=== PATIENT | male | born 1980 | race Caucasian/White ===

== ENCOUNTER 2024-05-11 13:10 | Emergency (ER) | payer SELFPAY ==
--- NOTE | ~2024-05-11 | CT_ITS ---
EXAMINATION: CT lumbar spine wo con DATE: 05/11/2024 14:03 INDICATION: Low back pain. TECHNIQUE: Computed tomography (CT) of the lumbar spine was performed without intravenous contrast. A utomated exposure control and iterative reconstruction technique were employed. The dose-length produ ct was 281.07 mGy-cm. COMPARISON: Chest single view 707/19 FINDINGS: There is a 2 mm stone in right kidney. S1 is a transitional segment. There is 3 mm anteroli sthesis of S1 on S2. There are Schmorl's nodes at most levels. There are chronic bilateral S1 pars de fects. There is mildly decreased disc height at L3-L4 and L4-L5. Osseous central spinal canal is deve lopmentally small. The following disc levels are specifically discussed: L1-L2: The disc does not extend beyond the endplate margin. There is mild bilateral facet joint osteo arthritis. There is no neural foraminal stenosis. There is no central canal stenosis. L2-L3: The disc is bulging. There is mild bilateral facet joint osteoarthritis. There is mild bilater al neural foraminal stenosis. There is mild central canal stenosis. L3-L4: The disc is bulging. There is mild right and moderate left facet joint osteoarthritis. There i s mild bilateral neural foraminal stenosis. There is mild central canal stenosis. L4-L5: The disc is bulging. There is mild bilateral facet joint osteoarthritis. There is moderate neeru ateral neural foraminal stenosis. There is mild central canal stenosis. L5-S1: The disc is bulging. There is mild bilateral facet joint osteoarthritis. There is mild right a nd moderate left neural foraminal stenosis. There is mild central canal stenosis. IMPRESSION: 1. Chronic bilateral S1 pars defects. 2. Moderate lumbar spondylosis. Reviewed, dictated and finalized at location A. ING INSPECTOR
[2024-05-11 13:09] VITALS: BP 128/97; PULSE 84; RESP 16; TEMP 36.5; O2SAT 97
[2024-05-11 14:05] VITALS: BP 127/86; PULSE 78; RESP 16; O2SAT 99
[2024-05-11] MEDS: KETOROLAC (*BKC) 60 MG/2 ML VIAL IM (14:06)
[2024-05-11] MEDS: CYCLOBENZAPRINE HCL 5 MG TABLET PO (14:06)
[2024-05-11] MEDS: HYDROcodone/acetaminophen (*CRX) 5-325 MG TABLET 1 TAB PO (14:06)
--- NOTE | 2024-05-11 14:40 | ED.BACK ---
HPI - Back Pain/Injury General Chief Complaint: Back Pain/Injury Stated Complaint: severe back pain Time Seen by Provider: 05/11/24 13:20 Source: patient Mode of arrival: EMS Limitations: no limitations History of Present Illness HPI Narrative: Patient is a 43 y/o male who presents to the ED via EMS with report of lower back pain. 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 States since yesterday, he has had increased pain in his lower back. Denies any fall or injury. Has not taken anything for pain. Denies radiation of pain into his legs. Denies saddle anesthesia, numbness, bowel or bladder incontinence, fevers, abdominal pain, weakness. Patient is currently residing in [facility] for alcohol detox. Denies any sx's of ETOH WD at this time. Denies IVDA. Related Data Allergies Allergy/AdvReac Type Severity Reaction Status Date / Time No Known Allergies Allergy Unverified 01/01/22 15:26 Review of Systems Review of Systems: All systems reviewed & are unremarkable except as noted in HPI. All systems reviewed & are unremarkable except as noted in HPI and below Exam Narrative: GENERAL: Well appearing, well-nourished, non-toxic, in no acute distress. HEAD: Normocephalic, atraumatic. RESPIRATORY: Airway patent, respirations nonlabored. Clear to auscultation bilaterally, no rales, rhonchi, wheezing. CARDIOVASCULAR: Regular rate and rhythm without murmurs, rubs, or gallops. MUSCULOSKELETAL: Moves all extremities. No gross deformities. Diffuse tenderness throughout lumbar region, involving midline spine. no palpable deformities or bony step-offs. Sensation intact. SKIN: Warm, dry, normal color. NEURO: A&O X3. Speech clear. Cranial nerves II-XII grossly intact. Steady gait. No ataxic movements. No focal deficits. PSYCHIATRIC: Appropriate mood and affect. Normal interaction. Course Vital Signs Vital signs: Vital Signs Temperature 97.7 F 05/11/24 13:09 Pulse Rate 84 05/11/24 13:09 Respiratory Rate 16 05/11/24 13:09 Blood Pressure 128/97 H 05/11/24 13:09 Pulse Oximetry 97 05/11/24 13:09 Oxygen Delivery Room Air 05/11/24 13:09 Temperature 97.7 F 05/11/24 13:09 Pulse Rate 78 05/11/24 14:05 Respiratory Rate 16 05/11/24 14:05 Blood Pressure 127/86 05/11/24 14:05 Pulse Oximetry 99 05/11/24 14:05 Oxygen Delivery Room Air 05/11/24 13:09 MDM - Back Pain/Injury MDM Narrative Medical decision making narrative: Patient's pain is positional and localized to paraspinal muscles without signs of cord compression or cauda equina. Normal neurologic exams. No red flag symptoms. No fever noted and no significant risk factors for osteomyelitis or spinal epidural abscess. No symptoms or signs to suggest pain is referred from abdominal or source. CT lumbar spine showing moderate spondylosis changes. Consistent with history of chronic pain. No acute osseous abnormality. Patient ambulates with a steady gait and is felt to be a reasonable candidate for continued outpatient management. Feeling better with supportive therapy in the ED. Will discharge with lidocaine patches and muscle relaxers for home use. Advised to continue Tylenol/ ibuprofen, limiting heavy lifting/strenuous activity. Patient in agreement with plan. Given return precautions. Discharged in stable condition back to [place]. Medical Records Attestation: I reviewed the patient's medical records. Imaging Data Attestation: I personally reviewed and interpreted this imaging study as follows: Radiologist's impression: ITS Impressions Lumbar Spine CT 05/11/24 14:07 IMPRESSION: 1. Chronic bilateral S1 pars defects. 2. Moderate lumbar spondylosis. Discharge Plan Discharge Clinical Impression: Lumbar spondylosis Strain of lumbar region Qualifiers: Encounter type: initial encounter Qualified Code(s): S39.012A - Strain of muscle, fascia and tendon of lower back, initial encounter Patient Disposition: Home, Self-Care Condition: Stable Instructions: Antibiotic Form, Acute Low Back Pain (ED), Lumbar Radiculopathy (ED), Lower Back Exercises (ED) Additional Instructions: Continue Tylenol and Ibuprofen as needed for pain. You may use ice/heat, lidocaine patches to area of pain. Take muscle relaxers as needed and prescribed. Recommend taking these at night as they may cause sedation. Do not drive, operate heavy machinery, drink alcohol while on muscle relaxers as this may cause further sedation. Follow-up with your primary care doctor and/or neurosurgery for further evaluation. Return to the ED if you experience worsening or severe pain, recurrent injury, numbness in groin or legs, going to the bathroom without meaning to, unable to keep down food or drink, or any other symptoms of concern. Prescriptions: New methocarbamol 750 mg tablet 1,500 mg PO TID PRN (Reason: muscle spasm) Qty: 15 0RF lidocaine 5 % adhesive patch,medicated 1 patch topical DAILY PRN (Reason: pain) Qty: 15 0RF Rx Instructions: leave on most painful area for up to 12 hrs Follow-up/Referrals: eDven Sterling MD [Physician] - (NEUROSURGERY) Andrew Amin MD [Physician] - (PRIMARY CARE) UNKNOWN,DOCTOR [Primary Care Provider] - Time of Disposition: 15:02
--- NOTE | 2024-05-11 16:07 | PC.NURSE ---
Report called to NENA Jose at [facility]. All questions answered. [facility] to send transport for pt.
[2024-05-11 16:10] VITALS: BP 128/83; PULSE 95; RESP 16; O2SAT 98
--- NOTE | 2024-05-11 16:10 | PC.NURSE ---
Sherri LUI to send medications to [facility] since pt. is at [place].
== END 2024-05-11 16:10 | disposition home or self-care (01) ==
PROVIDERS: Emergency Provider Physician Assistant
DX: M47.816 Spondylosis without myelopathy or radiculopathy, lumbar region (principal); S39.012A Strain of muscle, fascia and tendon of lower back, initial encounter; G89.29 Other chronic pain; X58.XXXA Exposure to other specified factors, initial encounter
CPT/HCPCS: 72131; 96372; 99284; A9270; J1885

== ENCOUNTER 2024-05-14 14:10 | Emergency (ER) | payer SELFPAY ==
--- NOTE | ~2024-05-14 | XR_ITS ---
XR chest 1V DATE: 05/14/2024 15:37 INDICATION: Syncope. Fell out of wheelchair. TECHNIQUE: Supine AP chest COMPARISON: None FINDINGS: Posterior lateral right sixth rib fracture. No pulmonary infiltrate or consolidation, pleural effusion or pulmonary vascular congestion or pneumo thorax. Heart size but appears borderline but is not optimally evaluated on AP projection because of magnific ation No hilar or mediastinal enlargement. IMPRESSION: No active disease Reviewed, dictated and finalized at location A. ULTANT IN ERGONOMICS AND SAFETY IMPRESSION: No active disease
--- NOTE | ~2024-05-14 | CT_ITS ---
EXAMINATION: CT brain wo con DATE: 05/14/2024 15:35 INDICATION: Fall TECHNIQUE: Computed tomography (CT) of the head was performed without intravenous contrast. The mA wa s adjusted according to patient size. Iterative reconstruction technique was employed. Exam dose: 60 5.33 mGy-cm total exam DLP. COMPARISON: 09/14/2014 CT brain FINDINGS: No intracranial mass lesion or hemorrhage or cerebrovascular accident. No midline shift or mass effect. Normal ventricular size. Normal martines-white matter differentiation. No subdural or epidur al hematoma. No skull fracture or bone destruction. Paranasal sinuses and mastoid air cells are unremarkable. IMPRESSION: Negative Reviewed, dictated and finalized at Location [facility]. Reviewed, dictated and finalized at location A. OWAVE ENGINEER IMPRESSION: Negative
--- NOTE | ~2024-05-14 | CT_ITS ---
EXAMINATION: CT cervical spine wo con DATE: 05/14/2024 15:35 INDICATION: Fall TECHNIQUE: Computed tomography (CT) of the cervical spine was performed without intravenous contrast. Automated exposure control and iterative reconstruction technique were employed. Exam dose: 537.45 mGy-cm total exam DLP. COMPARISON: None FINDINGS: Normal alignment at the atlantoaxial joints. C1 and C2 are normally aligned and the odontoid process is intact. There is straightening of the cervical spine, which may be due to muscle spasm or positioning. There is moderately severe degenerative disc disease at C5-6 and C6-7 with associated minimal retroli sthesis. Moderately severe degenerative disc disease at C7-T1. No fracture or dislocation or locked facet or prevertebral soft tissue swelling. IMPRESSION: Straightening, which may be due to muscle spasm; no fracture or dislocation or locked fa cet Moderate cervical spondylosis Reviewed, dictated and finalized at [facility]. Reviewed, dictated and finalized at location A. SKILLS WORKER IMPRESSION: Straightening, which may be due to muscle spasm; no fracture or di slocation or locked facet Moderate cervical spondylosis
--- NOTE | ~2024-05-14 | CT_ITS ---
CT thoracic lumbar wo con DATE: 05/14/2024 15:35 INDICATION: TECHNIQUE: Axial images through the thoracic spine. Sagittal and coronal reconstructions. Exam dose: 1753.69 mGy-cm total exam DLP. COMPARISON: None FINDINGS: Prominent degenerative disease at C6-7 and C7-T1. No thoracic spine fracture or dislocation or bone destruction. IMPRESSION: Degenerative changes of the cervical and thoracic spine No fracture or dislocation or bone destruction of the thoracic spine Reviewed, dictated and finalized at [facility]. Reviewed, dictated and finalized at location A. KET WASHER
[2024-05-14 14:11] VITALS: BP 137/94; PULSE 82; RESP 20; TEMP 36.7; O2SAT 99
--- NOTE | 2024-05-14 14:33 | PC.NURSE ---
Spoke with Deneen roche [facility] about patient. She states patient can not come back to the facility due to having a 'seizure . Patient does not have seizure history. I called and spoke with Yareli from [facility] who states patient was twitching for about 6 seconds and his eyes rolled back in his head. She states patient had a postictal period for about a minute .
--- NOTE | 2024-05-14 14:42 | ECG_ITS ---
Test Date: 2024-05-14 14:54:02 Measurements Intervals [place] Rate: 77 P: 57 WA: 145 QRS: 57 QRSD: 104 T: 40 QT: 351 QTc: 399 Interpretive Statements SINUS RHYTHM No previous ECG available for comparison Electronically Signed On 05-15-2024 14:46:58 LICENSING REPRESENTATIVE by Jm White M.D.
[2024-05-14 15:01] VITALS: BP 126/94; PULSE 87; RESP 20; O2SAT 100
[2024-05-14 15:03] LABS: Basophils Absolute Auto 0.1 K/mm3 (0.0-0.1); Basophils Percent Auto 0.6 % (0.2-1.2); Eosinophils Absolute Auto 0.3 K/mm3 (0-0.3); Eosinophils Percent Auto 2.7 % (0-4.4); Hematocrit 38.2 % (42.0-52.0); Hemoglobin 12.8 g/dL (14.0-18.0); Immature Granulocyte Absolute 0.03 K/mm3 (0.00-0.031); Immature Granulocyte Percent A 0.3 % (0-0.5); Lymphocytes Percent Auto 5.3 % (18.3-44.2); Mean Corpuscular HGB Conc 33.5 g/dl (32-36); Mean Corpuscular Volume 98.5 fl (80-100); Mean Platelet Volume 9.5 fl (7.4-10.4); Monocytes Absolute Auto 1.3 K/mm3 (0.1-0.6); Neutrophils Absolute Auto 7.3 K/mm3 (1.3-6.7); Neutrophils Percent Auto 77.1 % (45.5-73.1); Platelet Count Result 231 k/mm3 (150-375); Red Blood Count 3.88 M/mm3 (4.6-6.20); Red Cell Distribution Width 13.5 % (11.5-14.5); White Blood Count 9.5 K/mm3 (4.5-10.0)
[2024-05-14 15:12] LABS: Alanine Aminotransferase 47 U/L (6-50); Alkaline Phosphatase 38 U/L (38-126); Anion Gap 4 mmol/L (4-12); Aspartate Amino Transferase 49 U/L (17-59); Bilirubin,Total 0.4 mg/dL (0.2-1.3); Blood Urea Nitrogen 11 mg/dL (9-20); Calcium 9.1 mg/dL (8.4-10.2); Carbon Dioxide 30 mmol/L (22-30); Chloride 103 mmol/L (98-107); Estimated CRCL calculation 95 ml/min; Estimated Glomerular Filt Rate > 60; Glucose 91 mg/dL (65-110); Potassium 4.2 mmol/L (3.4-5.0); Sodium 137 mmol/L (137-145)
--- NOTE | 2024-05-14 16:07 | ED.BACK ---
HPI - Back Pain/Injury General Chief Complaint: Dizziness Stated Complaint: was unconscious, now lightheaded Time Seen by Provider: 05/14/24 14:46 History of Present Illness HPI Narrative: Patient is a 43 y/o male who presents to the ED with reports of lower back pain. He reports my back hurts so bad I can't move. Patient endorses a several year hx of chronic lower back pain, which he states is from his previous injury. He reports he was seen in the ER 2 days ago for a similar problem. Patient reports today he ?passed out? and is unsure whether he hit his head but endorses a positive loss of consciousness. He endorses pain from shoulder down to our spine. Patient is crying upon time of exam due to pain and refuses to directions yeast during neurological exam performed by HORIZONTAL BORING M[employer] SET UP OPERATOR. He also endorses lower abdominal pain. Has not taken anything for pain. Denies radiation of pain into his legs. Pt denies saddle anesthesia, numbness, bowel or bladder incontinence, weakness. He does believe he had a fever and headache prior to passing out. Related Data Allergies Allergy/AdvReac Type Severity Reaction Status Date / Time No Known Allergies Allergy Unverified 05/14/24 14:27 Exam Narrative: GENERAL: Well-nourished, non-toxic, in acute distress d/t pain. HEAD: Normocephalic, atraumatic. NECK: Supple. No adenopathy, no masses. RESPIRATORY: Airway patent, respirations nonlabored. Clear to auscultation bilaterally, no rales, rhonchi, wheezing. CARDIOVASCULAR: Regular rate and rhythm without murmurs, rubs, or gallops. Peripheral pulses 2+ and equal bilaterally. ABDOMINAL: Soft, tender in lower abdomen, nondistended, no hepatosplenomegaly. Normoactive BS. MUSCULOSKELETAL: Moves all extremities. Strength/ROM intact without gross deformities. SKIN: Warm, dry, normal color. No rashes. NEURO: A&O X3. Speech clear. Pt refusing to perform neuro checks upon request, but shows indication that all cranial nerves are intact. PSYCHIATRIC: inappropriate mood, tearful, yelling, agitated. inappropriate and abnormal interaction. When asked to perform neuro checks patient responded to H[employer]IZ[employer] M[employer] SET UP OPERATOR ?fuck you! Course Vital Signs Vital signs: Vital Signs Temperature 36.7 C 05/14/24 14:11 Pulse Rate 82 05/14/24 14:11 Respiratory Rate 20 05/14/24 14:11 Blood Pressure 137/94 H 05/14/24 14:11 Pulse Oximetry 99 05/14/24 14:11 Oxygen Delivery Room Air 05/14/24 14:11 Temperature 36.7 C 05/14/24 14:11 Pulse Rate 80 05/14/24 16:18 Respiratory Rate 17 05/14/24 16:18 Blood Pressure 139/97 H 05/14/24 16:18 Pulse Oximetry 99 05/14/24 16:18 Oxygen Delivery Room Air 05/14/24 14:11 MDM - Back Pain/Injury MDM Narrative Medical decision making narrative: Patient is a 43 y/o male who presents to the ED with reports of lower back pain. He reports my back hurts so bad I can't move. Patient endorses a several year hx of chronic lower back pain, which he states is from his previous injury. He reports he was seen in the ER 2 days ago for a similar problem. Patient reports today he ?passed out? and is unsure whether he hit his head but endorses a positive loss of consciousness. He endorses pain from shoulder down to our spine. Patient is crying upon time of exam due to pain and refuses to directions yeast during neurological exam performed by H[employer]IZONTAL BORING MILL SET UP OPERATOR. He also endorses lower abdominal pain. Has not taken anything for pain. Denies radiation of pain into his legs. Pt denies saddle anesthesia, numbness, bowel or bladder incontinence, weakness. He does believe he had a fever and headache prior to passing out. Labs Ordered: Patient's blood work results were unremarkable. His urinalysis was also unremarkable. Imaging Ordered: Thoracic/Lumbar CT spine, head CT scan, chest x-ray, cervical spine CT scan Results: There were no acute findings on any of patient's imaging. Diagnosis: Acute on chronic back pain Consults: orthopedics Patient Education/Shared MDM: Results shared with patient. Patient reports he is ?feeling better? after medication and repositioning. He will be discharged home with muscle relaxants. Patient will not be able to discharge back to chest not so he says he will make some calls to get a ride home. All of patient's neuro checks are intact upon reexamination. Patient verbalized understanding and is agreement with plan. 1809- Patient is in agreement with current treatment plan. All questions answered. Vital signs stable at time of discharge. Differential Diagnosis Differential diagnosis: Likely lumbar radiculopathy, sciatica, strain of lumbar region, pyelonephritis, thoracic back pain and discitis Lab Data Attestation: I reviewed the patient's lab results. 05/14/24 14:57 05/14/24 14:57 Labs: Lab Results 05/14/24 05/14/24 Range/Units 14:57 17:32 WBC 9.5 (4.5-10.0) K/mm3 RBC 3.88 L (4.6-6.20) M/mm3 Hgb 12.8 L (14.0-18.0) g/dL Hct 38.2 L (42.0-52.0) % MCV 98.5 (80-100) fl MCH 33.0 (26-34) pg MCHC 33.5 (32-36) g/dl RDW 13.5 (11.5-14.5) % Plt Count 231 (150-375) k/mm3 MPV 9.5 (7.4-10.4) fl Immature Gran % (Auto) 0.3 (0-0.5) % Neut % (Auto) 77.1 H (45.5-73.1) % Lymph % (Auto) 5.3 L (18.3-44.2) % Thomas % (Auto) 14.0 H (2.6-8.5) % Eos % (Auto) 2.7 (0-4.4) % Baso % (Auto) 0.6 (0.2-1.2) % Lymph # (Auto) 0.50 L (0.9-3.2) K/mm3 Thomas # (Auto) 1.3 H (0.1-0.6) K/mm3 Eos # (Auto) 0.3 (0-0.3) K/mm3 Baso # (Auto) 0.1 (0.0-0.1) K/mm3 Abs Immat Gran (auto) 0.03 (0.00-0.031) K/mm3 Absolute Neuts (auto) 7.3 H (1.3-6.7) K/mm3 Absolute Nucleated RBC 0.000 (0.0-0.012) K/mm3 Nucleated RBC % 0.0 (0.0-0.2) % Sodium 137 (137-145) mmol/L Potassium 4.2 (3.4-5.0) mmol/L Chloride 103 (98-107) mmol/L Carbon Dioxide 30 (22-30) mmol/L Anion Gap 4 (4-12) mmol/L BUN 11 (9-20) mg/dL Creatinine 0.90 (0.7-1.3) mg/dL Estim Creat Clear Calc 95 ml/min Estimated GFR > 60 (59 - ) Glucose 91 (65-110) mg/dL Calcium 9.1 (8.4-10.2) mg/dL Total Bilirubin 0.4 (0.2-1.3) mg/dL AST 49 (17-59) U/L ALT 47 (6-50) U/L Alkaline Phosphatase 38 (38-126) U/L Total Protein 7.0 (6.3-8.2) g/dL Albumin 4.0 (3.5-5.1) g/dL Urine Color Yellow (Yellow) Urine Appearance Clear (Clear) Urine pH 8.0 (5.0-9.0) Ur Specific [place] 1.020 (1.001-1.035) Urine Protein Negative (Negative) mg/dL Urine Glucose (UA) Negative (Negative) mg/dL Urine Ketones Negative (Negative) mg/dL Ur Blood (Man) Negative (Negative) Urine Nitrate Negative (Negative) Urine Bilirubin Negative (Negative) Urine Urobilinogen 0.2 (<2.0) mg/dL Leukocyte Esterase Rfl Negative (Negative) KIMO/UL Imaging Data Attestation: I personally reviewed and interpreted this imaging study as follows: Radiologist's impression: Impressions Chest X-Ray 05/14/24 15:47 IMPRESSION: No active disease Head CT 05/14/24 15:49 IMPRESSION: Negative Cervical Spine CT 05/14/24 15:52 IMPRESSION: Straightening, which may be due to muscle spasm; no fracture or dislocation or locked facet Moderate cervical spondylosis Thoracic/Lumbar Spine CT 05/14/24 15:59 IMPRESSION: Degenerative changes of the cervical and thoracic spine No fracture or dislocation or bone destruction of the thoracic spine Discharge Plan Discharge Clinical Impression: Acute exacerbation of chronic low back pain Patient Disposition: Home, Self-Care Condition: Stable Instructions: Antibiotic Form, Back Pain (ED) Additional Instructions: Please return to the ER with an worsening symptoms. Follow-up with primary care provider in the next 2-3 days. Take all medications as prescribed. Prescriptions: No Action methocarbamol 750 mg tablet 1,500 mg PO TID PRN (Reason: muscle spasm) Qty: 15 0RF lidocaine 5 % adhesive patch,medicated 1 patch topical DAILY PRN (Reason: pain) Qty: 15 0RF Rx Instructions: leave on most painful area for up to 12 hrs Follow-up/Referrals: UNKNOWN,DOCTOR [Primary Care Provider] -
[2024-05-14] MEDS: CYCLOBENZAPRINE HCL 5 MG TABLET PO (16:12)
[2024-05-14] MEDS: KETOROLAC 15 MG/ML VIAL (*BKC) IV PUSH (16:13)
[2024-05-14] MEDS: dexAMETHasone SOD PHOS INJ 10 MG/ML 1 ML VIAL IV PUSH (16:13)
[2024-05-14 16:18] VITALS: BP 139/97; PULSE 80; RESP 17; O2SAT 99
[2024-05-14 17:39] LABS: Add Urine Microscopic? NO; Appearance Urine Clear (Clear); Bilirubin Urine Negative (Negative); Blood Urine Negative (Negative); Color Urine Yellow (Yellow); Glucose Urine UA Negative (Negative); Ketones Urine Negative (Negative); Leukocyte Esterase Ur Negative LEU/UL (Negative); Nitrate Urine Negative (Negative); Protein Urine Negative (Negative); Urobilinogen Urine 0.2 mg/dL (<2.0)
--- NOTE | 2024-05-14 17:49 | PC.NURSE ---
patient able to sit up with assistance and states the pain is better after sitting up
[2024-05-14] MEDS: CYCLOBENZAPRINE HCL 10 MG TABLET PO (18:03)
== END 2024-05-14 18:25 | disposition home or self-care (01) ==
PROVIDERS: Emergency Medicine; Emergency Provider Registered Nurse
DX: M54.50 Low back pain, unspecified (principal); G89.29 Other chronic pain; M47.812 Spondylosis without myelopathy or radiculopathy, cervical region
CPT/HCPCS: 36415; 70450; 71045; 72125; 72128; 72131; 80053; 81003; 85025; 93005; 96374; 96375; 99284; A9270; J1100; J1885; L0140